=== PATIENT | male | born 1970 | race Native Hawaiian/Other Pacific Islander ===

== ENCOUNTER → 2016-05-26 | Outpatient (CLI) | payer OTHER ==
--- NOTE | 2016-05-26 12:00 | REP ---
LUMBAR SPINE, SEVEN VIEWS: HISTORY: Spondylolisthesis. There is no acute fracture. The L4-5 and L5-S1 intervertebral discs are decreased in height consistent with disc degeneration. There are 9 mm of grade 1 spondylolisthesis of L4 on L5. This is associated with L4 pars defects. The spondylolisthesis increases to 12 mm with flexion and returns to 9 mm with extension. IMPRESSION: Degenerative change as described above. Signed by Vini Bowser MD 05/26/2016 12:04 P
== END ==
LOC: M RAD 09:33
PROVIDERS: ATTEND Physician Assistant
DX: M43.17 Spondylolisthesis, lumbosacral region (principal)

== ENCOUNTER → 2016-06-29 | Outpatient (CLI) | payer OTHER ==
--- NOTE | 2016-07-11 00:36 | ECWPNPC ---
PATIENT NAME: YANDY SALDIVAR : 1970 GENDER: MALE VISIT DATE: 06/29/2016 DISCHARGE DATE: 06/29/16 1106 VISIT LOCKED DATE TIME: PHYSICIAN: KENDAL LARIOS RESOURCE: KENDAL LARIOS REASON FOR APPOINTMENT 1. LOW BACK PAIN HISTORY OF PRESENT ILLNESS NEW PATIENT CONSULT: WHEN DID YOUR PAIN FIRST START? . BRIEFLY DESCRIBE HOW YOUR PAIN STARTED? . HOW DOES YOUR PAIN CHANGE WITH TIME? . DOES YOUR PAIN AWAKEN YOU FROM SLEEP? . HOW MANY HOURS OF SLEEP DO YOU NORMALLY GET? . ANY DIAGNOSTIC TESTING? . FACILITY WHERE TESTS WERE DONE? ____. PAIN TREATMENT TREATMENT YES CANCER HAVE YOU EVER HAD ANY TYPE OF CANCER?NO NO. 46 YEAR OLD MALE PATIENT WITH HISTORY OF CHRONIC LOW BACK PAIN. PATIENT DESCRIBES THE PAIN ACHING, SHARP, THROBBING, SORE, SHOOTING, AND HAVING IT ALL THE TIME WITH A PAIN SCORE OF 8/10. 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 MR. SALDIVAR HAD A SURGICAL CONSULT WITH DR. OSMAN CASTILLO AND WAS TOLD THAT HE IS NOT A CANDIDATE FOR SURGERY AT THIS TIME. PATIENT REPORTS HAVING AN INJECTION BEFORE THAT AIDED IN PAIN RELIEF GREATLY. MR. SALDIVAR IS CURRENTLY NOT USING ANY MEDICATION FOR PAIN RELIEF. REPORTS NOT SLEEPING WELL AT NIGHT DUE TO THE PAIN. PATIENT REPORTS THAT ANY TYPE OF ACTIVITY INCREASES THE PAIN IN HIS LOWER BACK AND AT THIS TIME THE ONLY THING THAT HAS AIDED IN PAIN RELIEF IS THE INJECTION AND RESTING. PATIENT DENIES UNEXPLAINABLE WEIGHT LOSS, FEVER, CHILLS, NEW CHANGES ON HER URINARY OR BOWEL CONTROL. PAIN SCREENING: PATIENT HAS A COMPLAINT OF ACUTE OR CHRONIC PAIN :YES FALL RISK SCREENING: SCREENING :NO FALLS IN THE PAST YEAR DEXTER INVENTORY: QUESTIONNAIRE ASSESSEDTBD SCORE VALUE CALCULATED TBD CURRENT MEDICATIONS NONE PAST MEDICAL HISTORY LOW BACK PAIN RIGHT TENNIS ELBOW LEFT THUMB DISLOCATION DEPRESSION CATARACTS ALLERGIES N.K.D.A. SURGICAL HISTORY LEFT FIBULA ORIF FAMILY HISTORY FATHER: MOTHER: 2 SON(S) , 2 DAUGHTER(S) - HEALTHY. SOCIAL HISTORY GENERAL: TOBACCO USE ARE YOU A:NONSMOKER ALCOHOL SCREENING POINTS0 INTERPRETATIONNEGATIVE RECREATIONAL DRUG USE DRUG USE?NO CAFFEINE CAFFEINE USE?YES HOW OFTEN AND HOW MUCH? 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 MARITAL STATUS: . OTHERS AT HOME: SPOUSE. LEARNING BARRIERS / SPECIAL NEEDS LEARNING PREFERENCES?YES :HANDOUTS, DEMONSTRATION/VERBAL INSTRUCTION MEDICATION ABUSE NO PSYCHOLOGICAL HX TREATMENTYES HOW OFTEN AND HOW MUCH? BEHAVIORAL HEALTH EVERY 3 MOS PAIN CLINIC PFS, CLERGY, PUBLIC HEALTH REFERRALS CLERGY REFERRAL NEEDED?NO WAS THE PROVIDER NOTIFIED OF ANY PERTINENT INFO?NO PFS REFERRAL NEEDED?NO PUBLIC HEALTH REFERRAL NEEDED?NO PATIENT: ____. ADVANCED DIRECTIVES HEALTH CARE PROXY?NO WOULD YOU LIKE MORE INFORMATION?YES HCP FORM GIVEN TO PT DO YOU HAVE A DNR?NO POWER OF EXAMINATION SCORER?YES NAME OF POA? DIANE SALDIVAR PHONE # OF POA? [phone] DO YOU HAVE A COPY WITH YOU?NO HOSPITALIZATION/MAJOR DIAGNOSTIC PROCEDURE SEE ABOVE SURGERY REVIEW OF SYSTEMS CONSTITUTIONAL: ANY CHANGE IN YOUR MEDICAL CONDITION? NO . CHILLS NO . FEVER NO . INFECTION: DO YOU HAVE NEW INFECTIONS? NO . DO YOU HAVE HISTORY OF MRSA? NO . MUSCULOSKELETAL: ANY NEW PATTERNS OF PAIN OR NUMBNESS? YES PT STATES HX OF LOW BACK PAIN X 18 YRS-WORSENED RECENTLY. PT STATES IN 1998 BACK NOTED BACK PAIN AFTER LIFTING. PHYSICAL ACTIVITY LIMITED DUE TO BACK PAIN. PT STATES NOTES INTERMITTENT DISCOMFORT DOWN LEFT BUTTOCK/THIGH. . SYTEMIC LUPUS NO . GASTROENTEROLOGY: ANY NEW CHANGE IN BOWEL CONTROL? NOTES BOWEL URGENCY WITH SOME INCONTINENCE. . BARRETTS ESOPHAGUS NO . CIRRHOSIS NO . HEPATITIS NO . LIVER FAILURE NO . ACID REFLUX YES &QUOT;MINIMAL&QUOT; . UNEXPLAINED WEIGHT LOSS NO . GENITOURINARY: ANY NEW CHANGE IN BLADDER CONTROL? NO . IS THERE A CHANCE YOU COULD BE ? NO . HEMATOLOGY/LYMPH: DO YOU TAKE ANY BLOOD THINNERS? (FOR EXAMPLE- COUMADIN, PLAVIX, AGGRENOX, PLATEL, PRADAXA, OR XARELTO) NO . WHEN WAS YOUR LAST DOSE? DATE: TIME: . LOW PLATELET COUNT NO . SICKLE CELL DISEASE NO . VON WILLIEBRANDS NO . FACTOR V LEIDEN NO . THALLASEMIA NO . ANEMIA NO . EASY BRUISING NO . NEUROLOGY: HAVE YOU FALLEN IN THE PAST 6 MONTHS? NO . ANY NEW EXTREMITY NUMBNESS OR WEAKNESS? YES PT NOTES WEAKNESS LEFT THIGH INTERMITTENTLY. . HEAD INJURY YES &QUOT; FROM PARACHUTING/ TRAINING-EXPLOSIONS&QUOT; . DEMENTIA NO . CEREBRAL PALSY NO . MULTIPLE SCLEROSIS NO . DIZZINESS YES, INTERMITTENT, LASTING FOR MINUTES, SENSATION OF IMBALANCE, WITH MOVEMENT OF HEAD, SENSATION OF ROOM SPINNING . HEADACHE NO . STROKES NO . VERTIGO NO . CARDIOLOGY: DO YOU HAVE A PACEMAKER OR DEFIBRILLATOR? NO . ANGINA NO . HEART ATTACK NO . HEART SURGERY NO . CONGESTIVE HEART FAILURE/FLUID OVERLOAD NO . CHEST PAIN NO, PATIENT ADMITS, AGGRAVATED WITH EXERCISE, INCREASED WITH MOVEMENT OF TRUNK, RELIEVED WITH REST . HIGH BLOOD PRESSURE NO . IRREGULAR HEART BEAT NO . RESPIRATORY: HAVE YOU BEEN SICK IN THE PAST WEEK? NO . FEVER NO . FLU LIKE SYMPTOMS? NO . CPAP NO . BYPAP NO . ASTHMA NO . EMPHYSEMA NO . CHRONIC LUNG DISEASES NO . SHORTNESS OF BREATH ON EXERTION NO . DO YOU USE ANY TYPE OF TOBACCO (SMOKE, SMOKELESS, CHEW)? YES CHEWING TOBACCO DAILY . COUGH NO . SNORING NO . INTEGUMENTARY: DO YOU HAVE ANY RASHES OR OPEN SORES? NO . ALLERGIC/IMMUNO: ARE YOU ALLERGIC TO SHELLFISH OR IV DYE? NO . ANY NEW ALLERGIES? NO . PSYCHIATRIC: DO YOU HAVE THOUGHTS OF HURTING YOURSELF OR SOMEONE ELSE? NO . ARE YOU ABUSED, NEGLECTED, OR IN AN UNSAFE ENVIRONMENT? NO . ENDOCRINOLOGY: ARE YOU DIABETIC? NO . THYROID DISORDER NO . OTHER: DO YOU NEED ANY PRESCRIPTIONS? NO . IF YES, PLEASE LIST: ____ . ANY NEW PROBLEMS WITH YOUR MEDICATIONS? NO . WHEN DID YOU LAST EAT? ____ . WHEN DID YOU LAST DRINK? ____ . WHAT DID YOU LAST DRINK? ____ . NAME OF PERSON DRIVING YOU HOME? ____ . DO YOU HAVE ANY OTHER QUESTIONS OR CONCERNS NO . REVIEWED BY: PROVIDER: KENDAL LARIOS MD . VITAL SIGNS WT 185.4 LBS, HT 65 IN, BMI 30.85 INDEX, BP 122/72 MM HG, HR 76 /MIN, RR 18 /MIN, TEMP 98.4 F, OXYGEN SAT % 95, NA INITIALS HS, REVIEWED BY: MLF. EXAMINATION : PATIENT IS ALERT O X 3 AND COOPERATIVE. ANTALGIC GAIT. PATIENT HAS DIFFICULTIES STANDING. TENDERNESS IN THE LOWER BACK AND PARASPINAL MUSCLE GROUP. PATIENT UNABLE TO FLEX OR EXTEND BACK DUE TO STIFFNESS. MRI DONE ON 05/25/16 SHOWS A PARS DEFECT AT L4 L5 ALONG WITH DISC BULGES AND HYPERTROPHY. 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 CLINICAL NOTES: WE DISCUSSED SEVERAL ISSUES WITH MR. SALDIVAR'S PAIN MANAGEMENT CASE. AT THIS TIME THE PATIENT WILL CONTINUE WITH THE SAME MEDICATION REGIME BEFORE. AFTER VIEWING THE PATIENT'S MRI AND WHERE THE PATIENT STATES MOST OF HIS PAIN IS I WOULD LIKE TO MOVE FORWARD WITH A LUMBAR FACET BLOCK. WE DISCUSSED THE RISKS, BENENFITS, AND ALTNERATIVES OF THE INJECTION AND THE PATIENT WOULD LIKE TO PROCEED AT THIS TIME. INSTRUCTIONS WERE GIVEN, QUESTIONS WERE ANSWERED, PATIENT REPORTS UNDERSTANDING AND AGREES WITH THE PLAN. I, YENI SANTACRUZ, DOCUMENTED THE ABOVE INFORMATION ACTING A SCRIBE FOR DR. LARIOS. I HAVE REVIEWED THE ABOVE DOCUMENT, WRITTEN BY YENI MARTINEZ AND I VERIFY THAT IT IS ACCURATE. DEAR DR. CASTILLO:THANK YOU FOR YOUR KIND REFERRAL OF MR. SALDIVAR. YOU WANT TO DISCUSS HER CASE WITH ME PLEASE CALL ME AT THE PAIN CENTER AT [phone]. SINCERELY,KENDAL LARIOS, [facility]. PROCEDURE CODES FA211 ESTABILISHED PATIENT [facility] FACILITY CHARGE G8427 DOC MEDS VERIFIED W/PT OR RE G8730 PAIN ASSESS POS TOOL F/U PLAN DOC DISPOSITION & COMMUNICATION FOLLOW UP LFBT AFTER APPROVAL ELECTRONICALLY SIGNED BY KENDAL LARIOS MD ON 07/10/2016 AT 01:51 PM EDT DISCLAIMER : THIS IS A VISIT SUMMARY EXTRACTED FROM THE [employer] CHART. IT IS NOT A COPY OF THE [employer] PROGRESS NOTE. MTDD
== END ==
LOC: M PAIN 08:40
PROVIDERS: ATTEND Anesthesiology
DX: M47.816 Spondylosis without myelopathy or radiculopathy, lumbar region (principal); M47.817 Spondylosis without myelopathy or radiculopathy, lumbosacral region; M51.16 Intervertebral disc disorders with radiculopathy, lumbar region; M51.17 Intervertebral disc disorders with radiculopathy, lumbosacral region; M54.5 Low back pain; G89.29 Other chronic pain; F32.9 Major depressive disorder, single episode, unspecified

== ENCOUNTER → 2016-08-17 | Outpatient (CLI) | payer OTHER ==
[~2016-08-17] MED LIST: BUPIVACAINE HCL 0.25% 30 ML VIAL As Ordered ONE; ISOVUE-M 300 61% 15ML VIAL (Q9967) As Ordered ONE; LIDOCAINE 1% SDV INJ 30 ML VIAL As Ordered ONE; TRIAMCINOLONE ACETONIDE SUSP 40 MG/ML VIAL (J3301) As Ordered ONE; diazePAM 5 MG TAB As Ordered ONE; oxyCODONE 5MG TAB As Ordered ONE
--- NOTE | 2016-08-17 11:42 | REP ---
PARTIAL LUMBAR SPINE SERIES: Four views. HISTORY: Bilateral lumbar spine facet block for pain. Fluoroscopy time is 17 seconds. FINDINGS: A sequence of four fluoroscopically obtained last image hold spot radiographs of the lumbar spine document various needle positions and contrast injections associated with lumbar spine facet injection procedure. Signed by Sachin Pastrana MD 08/17/2016 12:41 P
--- NOTE | 2016-08-29 01:27 | ECWPNPC ---
PATIENT NAME: YANDY SALDIVAR : 1970 GENDER: MALE VISIT DATE: 08/17/2016 DISCHARGE DATE: 08/17/16 1127 VISIT LOCKED DATE TIME: PHYSICIAN: KENDAL LARIOS RESOURCE: KENDAL LARIOS REASON FOR APPOINTMENT 1. LFBT HISTORY OF PRESENT ILLNESS HISTORY OF PRESENT ILLNESS: PAIN THE PATIENT DESCRIBES THE PAIN... FALL RISK SCREENING: SCREENING :NO FALLS IN THE PAST YEAR CURRENT MEDICATIONS NONE PAST MEDICAL HISTORY LOW BACK PAIN RIGHT TENNIS ELBOW LEFT THUMB DISLOCATION DEPRESSION CATARACTS ALLERGIES N.K.D.A. REVIEW OF SYSTEMS CONSTITUTIONAL: ANY CHANGE IN YOUR MEDICAL CONDITION? NO . CHILLS NO . FEVER NO . INFECTION: DO YOU HAVE NEW INFECTIONS? NO . DO YOU HAVE HISTORY OF MRSA? NO . MUSCULOSKELETAL: ANY NEW PATTERNS OF PAIN OR NUMBNESS? NO . GASTROENTEROLOGY: ANY NEW CHANGE IN BOWEL CONTROL? NO . GENITOURINARY: ANY NEW CHANGE IN BLADDER CONTROL? NO . IS THERE A CHANCE YOU COULD BE ? NO . HEMATOLOGY/LYMPH: DO YOU TAKE ANY BLOOD THINNERS? (FOR EXAMPLE- COUMADIN, PLAVIX, AGGRENOX, PLATEL, PRADAXA, OR XARELTO) NO . WHEN WAS YOUR LAST DOSE? DATE: TIME: . NEUROLOGY: HAVE YOU FALLEN IN THE PAST 6 MONTHS? NO . ANY NEW EXTREMITY NUMBNESS OR WEAKNESS? NO . CARDIOLOGY: DO YOU HAVE A PACEMAKER OR DEFIBRILLATOR? NO . RESPIRATORY: HAVE YOU BEEN SICK IN THE PAST WEEK? NO . FEVER NO . FLU LIKE SYMPTOMS? NO . COUGH NO . INTEGUMENTARY: DO YOU HAVE ANY RASHES OR OPEN SORES? NO . ALLERGIC/IMMUNO: ARE YOU ALLERGIC TO SHELLFISH OR IV DYE? NO . ANY NEW ALLERGIES? NO . PSYCHIATRIC: DO YOU HAVE THOUGHTS OF HURTING YOURSELF OR SOMEONE ELSE? NO . ARE YOU ABUSED, NEGLECTED, OR IN AN UNSAFE ENVIRONMENT? NO . ENDOCRINOLOGY: ARE YOU DIABETIC? NO . OTHER: DO YOU NEED ANY PRESCRIPTIONS? NO . IF YES, PLEASE LIST: ____ . ANY NEW PROBLEMS WITH YOUR MEDICATIONS? NO . WHEN DID YOU LAST EAT? 08-16- PM . WHEN DID YOU LAST DRINK? 08-16- PM . WHAT DID YOU LAST DRINK? WATER . NAME OF PERSON DRIVING YOU HOME? DIANE OTT . DO YOU HAVE ANY OTHER QUESTIONS OR CONCERNS NO . REVIEWED BY: PROVIDER: . VITAL SIGNS WT 180.2 LBS, HT 65 IN, BMI 29.98 INDEX, BP 132/81 MM HG, HR 63 /MIN, RR 16 /MIN, TEMP 97.9 F, OXYGEN SAT % 99%, NA INITIALS SC 09:33, REVIEWED BY: CM. ASSESSMENTS SPONDYLOSIS WITHOUT MYELOPATHY OR RADICULOPATHY, LUMBAR REGION - M47.816 (PRIMARY) SPONDYLOSIS WITHOUT MYELOPATHY OR RADICULOPATHY, LUMBOSACRAL REGION - M47.817 PROCEDURES PN LUMBAR FACET BLOCK THERAPEUTIC PRE PROCEDURE DIAGNOSIS LUMBAR SPONDYLOSIS, LUMBOSACRAL SPONDYLOSIS POST PROCEDURE DIAGNOSIS LUMBAR SPONDYLOSIS, LUMBOSACRAL SPONDYLOSIS PROCEDURE BILATERAL L4-L5 AND BILATERAL L5-S1 LUMBAR FACET THERAPEUTIC BLOCK SURGEON DR. KENDAL LARIOS CLERICAL STOCK INSPECTOR NONE ANESTHESIA LOCAL PRE PROCEDURE NOTE THE PATIENT HAS A HISTORY OF CHRONIC LOW BACK PAIN. I EVALUATE THE PATIENT AND REVIEWED THE CHART. I WENT OVER THE RISKS, ALTERNATIVES, AND BENEFITS ASSOCIATED WITH THIS PROCEDURE. THE PATIENT WOULD LIKE TO PROCEED AND GIVE CONSENT TO PERFORMED THE PROCEDURE. THE PATIENT DENIES UNEXPLAINABLE WEIGHT LOSS, FEVER, CHILLS, OR NEW CHANGES IN URINARY OR BOWEL CONTROL DESCRIPTION OF PROCEDURE THE PATIENT WAS BROUGHT TO THE PROCEDURE ROOM AND PLACED IN THE PRONE POSITION. THE LUMBOSACRAL AREA WAS CLEANED WITH CHLORAPREP SOLUTION AND DRAPED ASEPTICALLY. THE PROCEDURE WAS DONE UNDER STERILE CONDITIONS. I CHECKED LATERALITY AND THE LEVEL WHERE THE PROCEDURE WAS GOING TO BE PERFORMED WITH THE PATIENT AND THE SUPPORTING STAFF AT THE MOMENT OF THE TIME OUT IN THE PROCEDURE ROOM. UNDER FLUOROSCOPIC GUIDANCE, THE TARGET POINT WAS SELECTED AT THE RIGHT AND LEFT L4-L5 AND RIGHT AND LEFT L5-S1 FACET JOINT. TARGET POINT WAS SELECTED AFTER LATERAL ROTATION AND TILT OF THE MAGNIFIER OF THE C-ARM. LIDOCAINE 0.5% WAS USED TO NUMB THE SKIN AND THE SUBCUTANEOUS TISSUE BELOW IT. SPINAL NEEDLES, 22-GAUGE, WERE ADVANCED UNDER FLUOROSCOPIC GUIDANCE AND FOLLOWING PATIENT FEEDBACK UNTIL THE TARGETS WERE TOUCHED. THE POSITION OF THE NEEDLES WAS VERIFIED WITH AP AND LATERAL VIEWS. AFTER PROPER POSITION OF THE NEEDLES WAS ACHIEVED, ISOVUE-M DYE 30% 0.1 ML WAS INJECTED SHOWING ADEQUATE SPREAD OF THE DYE. THEN A SOLUTION OF 1.9 ML OF BUPIVACAINE 0.125% OF KENALOG 10 MG WAS INJECTED AT EACH SITE. THERE WAS NO EVIDENCE OF BLOOD, PARESTHESIA OR CEREBROSPINAL FLUID DURING THE PROCEDURE. THE PATIENT WAS SENT TO THE RECOVERY ROOM. THE PATIENT WAS MOVING THE EXTREMITIES AND DOING WELL. THERE WAS NO COMPLICATION DURING THE PROCEDURE. FLUOROSCOPY TIME WAS 17 SECONDS POST PROCEDURE NOTE THE PATIENT WILL BE SEEN IN A FOLLOW UP IN THE NEXT FEW WEEKS. INSTRUCTIONS WERE GIVEN, QUESTIONS WERE ANSWERED, AND THE PATIENT EXPRESSED UNDERSTANDING AND AGREES WITH THE PLAN. I, YENI SANTACRUZ, DOCUMENTED THE ABOVE INFORMATION ACTING A SCRIBE FOR DR. LARIOS. I HAVE REVIEWED THE ABOVE DOCUMENT, WRITTEN BY YENI MARTINEZ AND I VERIFY THAT IT IS ACCURATE DIAGNOSTIC IMAGING [facility] FACET BLOCK (PAIN)[id number] PROCEDURE CODES 15056 INJ PARAVERT F JNT L/S 1 LEV 52656 INJ PARAVERT F JNT L/S 2 LEV 6045F RADXPS IN END [id number] PXD DISPOSITION & COMMUNICATION FOLLOW UP 3 WEEKS ELECTRONICALLY SIGNED BY KENDAL LARIOS MD ON 08/28/2016 AT 09:37 PM EDT DISCLAIMER : THIS IS A VISIT SUMMARY EXTRACTED FROM THE [employer] CHART. IT IS NOT A COPY OF THE [employer] PROGRESS NOTE. MTDD
== END ==
LOC: M PAIN 09:00
PROVIDERS: ATTEND Anesthesiology
DX: G89.29 Other chronic pain (principal); M47.816 Spondylosis without myelopathy or radiculopathy, lumbar region; M47.817 Spondylosis without myelopathy or radiculopathy, lumbosacral region; M54.5 Low back pain
CPT/HCPCS: 64493; 64494; J3301; Q9967

== ENCOUNTER → 2016-08-31 | Outpatient (CLI) | payer OTHER ==
--- NOTE | 2016-08-31 23:49 | ECWPNPC ---
PATIENT NAME: YANDY SALDIVAR : 1970 GENDER: MALE VISIT DATE: 08/31/2016 DISCHARGE DATE: 08/31/16 1609 VISIT LOCKED DATE TIME: PHYSICIAN: JAGDISH DOYLE RESOURCE: JAGDISH DOYLE REASON FOR APPOINTMENT 1. POST FACET HISTORY OF PRESENT ILLNESS HISTORY OF PRESENT ILLNESS: HERE FOR POST PROCEDURE F/U.HAD BILATERALL4/5-L5/S1 THERAPEUTIC FACET BLOCK.REPORTING >50% IMPROVEMENT IN LOW BACK PAIN POST PROCEDURE THAT CONTINUES TODAY.RATING PAIN VAS 4/10.CHIEF AREA OF PAIN IS LEFT LOW BACK.DESCRIBES THIS AREA OF PAIN SHARP AND GRABBING.PAIN IN THIS AREA IS SO SEVERE THAT IT DROPS HIM TO HIS KNEES.REVIEWED MRI AND TREATMENT OPTIONS WITH PATIENT AND . PAIN THE PATIENT DESCRIBES THE PAIN... FALL RISK SCREENING: SCREENING :NO FALLS IN THE PAST YEAR CURRENT MEDICATIONS TAKING IBUPROFEN 200 MG TABLET 1 TABLET WITH FOOD OR MILK NEEDED ORALLY EVERY 6 HRS MEDICATION LIST REVIEWED AND RECONCILED WITH THE PATIENT PAST MEDICAL HISTORY LOW BACK PAIN RIGHT TENNIS ELBOW LEFT THUMB DISLOCATION DEPRESSION CATARACTS ALLERGIES APPLES: ITCHING IN THROAT AND IRRITATION: ALLERGY ALMONDS: THROAT AND LIPS ITCHING AND IRRITATION: ALLERGY SOCIAL HISTORY GENERAL: TOBACCO USE ARE YOU A:NONSMOKER ALCOHOL SCREENING DID YOU HAVE A DRINK CONTAINING ALCOHOL IN THE PAST YEAR?NO POINTS0 INTERPRETATIONNEGATIVE RECREATIONAL DRUG USE DRUG USE?NO CAFFEINE CAFFEINE USE?YES HOW OFTEN AND HOW MUCH? 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 MARITAL STATUS: . OTHERS AT HOME: SPOUSE. LEARNING BARRIERS / SPECIAL NEEDS LEARNING PREFERENCES?YES :HANDOUTS, DEMONSTRATION/VERBAL INSTRUCTION MISCELLANEOUS: CHEWS TOBACCO. MEDICATION ABUSE NO PSYCHOLOGICAL HX TREATMENTYES HOW OFTEN AND HOW MUCH? BEHAVIORAL HEALTH EVERY 3 MOS PAIN CLINIC PFS, CLERGY, PUBLIC HEALTH REFERRALS PFS REFERRAL NEEDED? NO , CLERGY REFERRAL NEEDED? NO , PUBLIC HEALTH REFERRAL NEEDED? NO , WAS THE PROVIDER NOTIFIED OF ANY PERTINENT INFO? NO . PATIENT: ____. ADVANCE DIRECTIVES HEALTH CARE PROXY?NO WOULD YOU LIKE MORE INFORMATION?YES HCP FORM GIVEN TO PT DO YOU HAVE A DNR?NO POWER OF BOX FOLDING MACHINE OPERATOR?YES NAME OF POA? MANNYCLEO MARQUEZDANAY PHONE # OF POA? [phone] DO YOU HAVE A COPY WITH YOU?NO REVIEW OF SYSTEMS CONSTITUTIONAL: ANY CHANGE IN YOUR MEDICAL CONDITION? NO . CHILLS NO . FEVER NO . INFECTION: DO YOU HAVE NEW INFECTIONS? NO . DO YOU HAVE HISTORY OF MRSA? NO . MUSCULOSKELETAL: ANY NEW PATTERNS OF PAIN OR NUMBNESS? NO . GASTROENTEROLOGY: ANY NEW CHANGE IN BOWEL CONTROL? NO . GENITOURINARY: ANY NEW CHANGE IN BLADDER CONTROL? NO . IS THERE A CHANCE YOU COULD BE ? NO . HEMATOLOGY/LYMPH: DO YOU TAKE ANY BLOOD THINNERS? (FOR EXAMPLE- COUMADIN, PLAVIX, AGGRENOX, PLATEL, PRADAXA, OR XARELTO) NO . WHEN WAS YOUR LAST DOSE? DATE: TIME: . NEUROLOGY: HAVE YOU FALLEN IN THE PAST 6 MONTHS? NO . ANY NEW EXTREMITY NUMBNESS OR WEAKNESS? NO . CARDIOLOGY: DO YOU HAVE A PACEMAKER OR DEFIBRILLATOR? NO . RESPIRATORY: HAVE YOU BEEN SICK IN THE PAST WEEK? NO . FEVER NO . FLU LIKE SYMPTOMS? NO . COUGH NO . INTEGUMENTARY: DO YOU HAVE ANY RASHES OR OPEN SORES? NO . ALLERGIC/IMMUNO: ARE YOU ALLERGIC TO SHELLFISH OR IV DYE? NO . ANY NEW ALLERGIES? NO . PSYCHIATRIC: DO YOU HAVE THOUGHTS OF HURTING YOURSELF OR SOMEONE ELSE? NO . ARE YOU ABUSED, NEGLECTED, OR IN AN UNSAFE ENVIRONMENT? NO . ENDOCRINOLOGY: ARE YOU DIABETIC? NO . OTHER: DO YOU NEED ANY PRESCRIPTIONS? NO . IF YES, PLEASE LIST: ____ . ANY NEW PROBLEMS WITH YOUR MEDICATIONS? NO . WHEN DID YOU LAST EAT? ____ . WHEN DID YOU LAST DRINK? ____ . WHAT DID YOU LAST DRINK? ____ . NAME OF PERSON DRIVING YOU HOME? ____ . DO YOU HAVE ANY OTHER QUESTIONS OR CONCERNS NO . REVIEWED BY: PROVIDER: JAGDISH ZAVALA . VITAL SIGNS WT 177/6 LBS, HT 65 IN, BMI 26.70 INDEX, BP 134/81 MM HG, HR 75 /MIN, RR 18 /MIN, TEMP 97.7 F, OXYGEN SAT % 97%, NA INITIALS SC 15:31, REVIEWED BY: VD. EXAMINATION GENERAL EXAMINATION: GENERAL APPEARANCE:COMFORTABLE. PSYCHAFFECT FLAT. LUNGS:LUNG JORDAN ARE CLEAR TO AUSCULTATION BILATERALLY. GOOD MOVEMENT OF AIR. HEART:S1, S2 IN A REGULAR RATE AND RHYTHM. NO SIGNIFICANT MURMURS, RUBS OR GALLOPS NOTED. BACK:SPECIFIC LEFT SIJ DISCOMFORT WITH PALPATION.SPECIFIC TRIGGER POINTS ELICITED LEFT LUMBAR PARASPINAL. 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 PREVENTIVE MEDICINE PT. GIVEN AND REVIEWED INFORMATION ABOUT SIJS. PROCEDURE CODES FA211 ESTABILISHED PATIENT [facility] CHARGE DISPOSITION & COMMUNICATION FOLLOW UP 2WK POST (REASON: LEFT SIJ) ELECTRONICALLY SIGNED BY SALLY LUNA ON 08/31/2016 AT 04:47 PM EDT DISCLAIMER : THIS IS A VISIT SUMMARY EXTRACTED FROM THE [employer] CHART. IT IS NOT A COPY OF THE [employer] PROGRESS NOTE. ANUJA
== END ==
LOC: M PAIN 15:20
PROVIDERS: ATTEND Nurse Practitioner Family
DX: M53.3 Sacrococcygeal disorders, not elsewhere classified (principal); M43.06 Spondylolysis, lumbar region; Z91.018 Allergy to other foods

== ENCOUNTER → 2016-09-04 | Outpatient (CLI) | payer OTHER | LOC: M PAIN 09:20 | PROVIDERS: ATTEND Anesthesiology | DX: M53.3 Sacrococcygeal disorders, not elsewhere classified (principal); Z53.21 Procedure and treatment not carried out due to patient leaving prior to being seen by health care provider ==

== ENCOUNTER → 2016-09-28 | Outpatient (CLI) | payer OTHER ==
[~2016-09-28] MED LIST changes: -diazePAM 5 MG TAB As Ordered ONE; -oxyCODONE 5MG TAB As Ordered ONE
--- NOTE | 2016-09-28 14:15 | REP ---
PARTIAL SI JOINT SERIES: Single view. HISTORY: Left SI joint injection for pain. 9 seconds of fluoroscopy time is reported. FINDINGS: A single fluoroscopically obtained last image hold spot radiograph documents needle position and contrast injection associated with SI joint injection procedure. No laterality markers are visible. Signed by Sachin Pastrana MD 09/28/2016 05:15 P
--- NOTE | 2016-10-09 00:03 | ECWPNPC ---
PATIENT NAME: YANDY SALDIVAR : 1970 GENDER: MALE VISIT DATE: 09/28/2016 DISCHARGE DATE: 09/28/16 1149 VISIT LOCKED DATE TIME: PHYSICIAN: KENDAL LARIOS RESOURCE: KENDAL LARIOS REASON FOR APPOINTMENT 1. L SIJ HISTORY OF PRESENT ILLNESS HISTORY OF PRESENT ILLNESS: PAIN THE PATIENT DESCRIBES THE PAIN... FALL RISK SCREENING: SCREENING :NO FALLS IN THE PAST YEAR CURRENT MEDICATIONS TAKING IBUPROFEN 200 MG TABLET 1 TABLET WITH FOOD OR MILK NEEDED ORALLY EVERY 6 HRS, NOTES: NONE RECENT MEDICATION LIST REVIEWED AND RECONCILED WITH THE PATIENT PAST MEDICAL HISTORY LOW BACK PAIN RIGHT TENNIS ELBOW LEFT THUMB DISLOCATION DEPRESSION CATARACTS ALLERGIES APPLES: ITCHING IN THROAT AND IRRITATION: ALLERGY ALMONDS: THROAT AND LIPS ITCHING AND IRRITATION: ALLERGY REVIEW OF SYSTEMS REVIEWED BY: PROVIDER: . CONSTITUTIONAL: ANY CHANGE IN YOUR MEDICAL CONDITION? NO . CHILLS NO . FEVER NO . INFECTION: DO YOU HAVE NEW INFECTIONS? NO . DO YOU HAVE HISTORY OF MRSA? NO . MUSCULOSKELETAL: ANY NEW PATTERNS OF PAIN OR NUMBNESS? YES, PAIN IS GOING DOWN LEFT LEG MORE AND HAS SOME NUMBNESS IN THE LEG. . GASTROENTEROLOGY: ANY NEW CHANGE IN BOWEL CONTROL? NO . GENITOURINARY: ANY NEW CHANGE IN BLADDER CONTROL? NO . IS THERE A CHANCE YOU COULD BE ? NO . HEMATOLOGY/LYMPH: DO YOU TAKE ANY BLOOD THINNERS? (FOR EXAMPLE- COUMADIN, PLAVIX, AGGRENOX, PLATEL, PRADAXA, OR XARELTO) NO . WHEN WAS YOUR LAST DOSE? DATE: TIME: . NEUROLOGY: HAVE YOU FALLEN IN THE PAST 6 MONTHS? YES . ANY NEW EXTREMITY NUMBNESS OR WEAKNESS? NO . CARDIOLOGY: DO YOU HAVE A PACEMAKER OR DEFIBRILLATOR? NO . RESPIRATORY: HAVE YOU BEEN SICK IN THE PAST WEEK? NO . FEVER NO . FLU LIKE SYMPTOMS? NO . COUGH NO . INTEGUMENTARY: DO YOU HAVE ANY RASHES OR OPEN SORES? NO . ALLERGIC/IMMUNO: ARE YOU ALLERGIC TO SHELLFISH OR IV DYE? NO . ANY NEW ALLERGIES? NO . PSYCHIATRIC: DO YOU HAVE THOUGHTS OF HURTING YOURSELF OR SOMEONE ELSE? NO . ARE YOU ABUSED, NEGLECTED, OR IN AN UNSAFE ENVIRONMENT? NO . ENDOCRINOLOGY: ARE YOU DIABETIC? NO . OTHER: DO YOU NEED ANY PRESCRIPTIONS? NO . IF YES, PLEASE LIST: ____ . ANY NEW PROBLEMS WITH YOUR MEDICATIONS? NO . WHEN DID YOU LAST EAT? 09-27- PM . WHEN DID YOU LAST DRINK? -- PM . WHAT DID YOU LAST DRINK? WATER . NAME OF PERSON DRIVING YOU HOME? OTILIO . DO YOU HAVE ANY OTHER QUESTIONS OR CONCERNS NO . VITAL SIGNS WT 173 LBS, HT 65 IN, BMI 28.79 INDEX, BP 105/52 MM HG, HR 63 /MIN, RR 16 /MIN, TEMP 98.1 F, OXYGEN SAT % 97%, NA INITIALS TL 0916, REVIEWED BY: CM. ASSESSMENTS SACROILIITIS - M46.1 (PRIMARY) PROCEDURES PN SI PRE PROCEDURE DIAGNOSIS SACROILIITIS, SACROILIAC JOINT DYSFUNCTION POST PROCEDURE DIAGNOSIS SACROILIITIS, SACROILIAC JOINT DYSFUNCTION PROCEDURE LEFT SACROILIAC JOINT BLOCK SURGEON DR. KENDAL LARIOS CORE FEEDER NONE ANESTHESIA LOCAL PRE PROCEDURE NOTE PATIENT WITH HISTORY OF CHRONIC LOW BACK PAIN. I EVALUATED THE PATIENT AND REVIEWED THE CHART. I WENT OVER THE RISKS, ALTERNATIVES, AND BENEFITS ASSOCIATED WITH THIS PROCEDURE. THE PATIENT WOULD LIKE TO PROCEED AND GAVE CONSENT TO PERFORM THE PROCEDURE. THE PATIENT DENIES UNEXPLAINABLE WEIGHT LOSS, FEVER, CHILLS, OR NEW CHANGES IN URINARY OR BOWEL CONTROL DESCRIPTION OF PROCEDURE THE PATIENT WAS BROUGHT TO THE PROCEDURE ROOM AND PLACED IN THE PRONE POSITION. THE LUMBOSACRAL AREA WAS CLEANED WITH CHLORAPREP SOLUTION AND DRAPED ASEPTICALLY. THE PROCEDURE WAS DONE UNDER STERILE CONDITIONS. I CHECKED LATERALITY AND THE LEVEL WHERE THE PROCEDURE WAS GOING TO BE PERFORMED WITH THE PATIENT AND THE SUPPORTING STAFF AT THE MOMENT OF THE TIME OUT IN THE PROCEDURE ROOM. UNDER FLUOROSCOPIC GUIDANCE, TARGET POINT WAS SELECTED AT THE LOWER BORDER OF THE LEFT SACROILIAC JOINT. TARGET POINT WAS SELECTED AFTER MEDIAL ROTATION AND TILT OF THE MAGNIFIER OF THE C-ARM. LIDOCAINE WAS USED TO NUMB THE SKIN AND SUBCUTANEOUS TISSUE BELOW IT. A SPINAL NEEDLE, 22-GAUGE, WAS ADVANCED UNDER FLUOROSCOPIC GUIDANCE AND FOLLOWING PATIENT FEEDBACK UNTIL THE TARGET AREA WAS TOUCHED. THE POSITION OF THE NEEDLE WAS VERIFIED WITH AP AND LATERAL VIEWS. AFTER PROPER POSITION OF THE NEEDLE WAS ACHIEVED, ISOVUE M DYE 30%, 0.25 ML, WAS INJECTED SHOWING SPREAD OF THE DYE. THEN, A SOLUTION OF 20 MG OF KENALOG WAS INJECTED IN RIGHT JOINT WITH 3 ML OF BUPIVACAINE 0.125%. THERE WAS NO EVIDENCE OF BLOOD, PARESTHESIA OR CEREBROSPINAL FLUID DURING THE PROCEDURE. THE PATIENT WAS SENT TO THE RECOVERY ROOM. THE PATIENT WAS MOVING THE EXTREMITIES AND DOING WELL. THERE WAS NO COMPLICATION DURING THE PROCEDURE. FLUOROSCOPY TIME WAS 9 SECONDS POST PROCEDURE NOTE THE PATIENT WILL BE SEEN IN A FOLLOW UP IN THE NEXT FEW WEEKS. INSTRUCTIONS WERE GIVEN, QUESTIONS WERE ANSWERED, AND THE PATIENT EXPRESSED UNDERSTANDING AND AGREED WITH THE PLAN. I, YENI SANTACRUZ, DOCUMENTED THE ABOVE INFORMATION ACTING A SCRIBE FOR DR. LARIOS. I HAVE REVIEWED THE ABOVE DOCUMENT, WRITTEN BY YENI MARTINEZ AND I VERIFY THAT IT IS [facility] FLUORO GUIDANCE (PAIN)[id number] PROCEDURE CODES 87202 INJECT SACROILIAC JOINT 6045F RADXPS IN END [id number] PXD DISPOSITION & COMMUNICATION FOLLOW UP 3 WEEKS ELECTRONICALLY SIGNED BY KENDAL LARIOS MD ON 10/08/2016 AT 10:25 PM EDT DISCLAIMER : THIS IS A VISIT SUMMARY EXTRACTED FROM THE [employer] CHART. IT IS NOT A COPY OF THE [employer] PROGRESS NOTE. ANUJA
== END ==
LOC: M PAIN 09:00
PROVIDERS: ATTEND Anesthesiology
DX: G89.29 Other chronic pain (principal); M46.1 Sacroiliitis, not elsewhere classified; M54.5 Low back pain; Z91.018 Allergy to other foods
CPT/HCPCS: G0260; J3301; Q9967

== ENCOUNTER → 2016-10-19 | Outpatient (CLI) | payer OTHER ==
--- NOTE | 2016-11-07 01:20 | ECWPNPC ---
PATIENT NAME: YANDY SALDIVAR : 1970 GENDER: MALE VISIT DATE: 10/19/2016 DISCHARGE DATE: 10/19/16 1605 VISIT LOCKED DATE TIME: PHYSICIAN: JAGDISH DOYLE RESOURCE: JAGDISH DOYLE REASON FOR APPOINTMENT 1. POST L SIJ HISTORY OF PRESENT ILLNESS HISTORY OF PRESENT ILLNESS: HERE FOR POST PROCEDURE F/U.HAD LEFT SIJ ON SEPTEMBER 28.REPORTS >50% IMPROVEMENT IN PAIN POST PROCEDURE FOR 10 DAYS.STATES TODAY PAIN IS NOT SHARP BEFORE SHOT.RATING PAIN VAS 8/10.DISCUSSED TREATMENT OPTIONS.PAIN IS LOCATED IN LEFT LOW BACK WITH RADIATION INTO LEFT THIGH. PAIN THE PATIENT DESCRIBES THE PAIN... FALL RISK SCREENING: SCREENING :NO FALLS IN THE PAST YEAR CURRENT MEDICATIONS TAKING IBUPROFEN 200 MG TABLET 1 TABLET WITH FOOD OR MILK NEEDED ORALLY EVERY 6 HRS, NOTES: NONE RECENT TAKING CELEBREX 50 MG CAPSULE 1 CAPSULE WITH FOOD ORALLY TWICE A DAY MEDICATION LIST REVIEWED AND RECONCILED WITH THE PATIENT PAST MEDICAL HISTORY LOW BACK PAIN RIGHT TENNIS ELBOW LEFT THUMB DISLOCATION DEPRESSION CATARACTS ALLERGIES APPLES: ITCHING IN THROAT AND IRRITATION: ALLERGY ALMONDS: THROAT AND LIPS ITCHING AND IRRITATION: ALLERGY SURGICAL HISTORY LEFT FIBULA ORIF HOSPITALIZATION/MAJOR DIAGNOSTIC PROCEDURE SEE ABOVE SURGERY REVIEW OF SYSTEMS REVIEWED BY: PROVIDER: JAGDISH DOYLE THREAD SEPARATOR . CONSTITUTIONAL: ANY CHANGE IN YOUR MEDICAL CONDITION? NO . CHILLS NO . FEVER NO . INFECTION: DO YOU HAVE NEW INFECTIONS? NO . DO YOU HAVE HISTORY OF MRSA? NO . MUSCULOSKELETAL: ANY NEW PATTERNS OF PAIN OR NUMBNESS? YES, PT STATES HE HAD LEFT SIJ ON 09/28/16, PAIN PRE PROCEDURE WAS 8/10. POST PROCEDURE 2/10 SLOWLY CREEPING TO 8/10 TODAY . GASTROENTEROLOGY: ANY NEW CHANGE IN BOWEL CONTROL? NO . GENITOURINARY: ANY NEW CHANGE IN BLADDER CONTROL? NO . IS THERE A CHANCE YOU COULD BE ? NO . HEMATOLOGY/LYMPH: DO YOU TAKE ANY BLOOD THINNERS? (FOR EXAMPLE- COUMADIN, PLAVIX, AGGRENOX, PLATEL, PRADAXA, OR XARELTO) NO . WHEN WAS YOUR LAST DOSE? DATE: TIME: . NEUROLOGY: HAVE YOU FALLEN IN THE PAST 6 MONTHS? YES, PT STATES HE FALLS OFTEN DURING TRAINING WITH [employer]. . ANY NEW EXTREMITY NUMBNESS OR WEAKNESS? NO . CARDIOLOGY: DO YOU HAVE A PACEMAKER OR DEFIBRILLATOR? NO . RESPIRATORY: HAVE YOU BEEN SICK IN THE PAST WEEK? NO . FEVER NO . FLU LIKE SYMPTOMS? NO . COUGH NO . INTEGUMENTARY: DO YOU HAVE ANY RASHES OR OPEN SORES? NO . ALLERGIC/IMMUNO: ARE YOU ALLERGIC TO SHELLFISH OR IV DYE? NO . ANY NEW ALLERGIES? NO . PSYCHIATRIC: DO YOU HAVE THOUGHTS OF HURTING YOURSELF OR SOMEONE ELSE? NO . ARE YOU ABUSED, NEGLECTED, OR IN AN UNSAFE ENVIRONMENT? NO . ENDOCRINOLOGY: ARE YOU DIABETIC? NO . OTHER: DO YOU NEED ANY PRESCRIPTIONS? NO . IF YES, PLEASE LIST: ____ . ANY NEW PROBLEMS WITH YOUR MEDICATIONS? NO . WHEN DID YOU LAST EAT? ____ . WHEN DID YOU LAST DRINK? ____ . WHAT DID YOU LAST DRINK? ____ . NAME OF PERSON DRIVING YOU HOME? ____ . DO YOU HAVE ANY OTHER QUESTIONS OR CONCERNS NO . VITAL SIGNS WT 175 LBS, HT 65 IN, BMI 29.12 INDEX, BP 125/88 MM HG, HR 86 /MIN, RR 16 /MIN, TEMP 97.2 F, OXYGEN SAT % 96%, SAFE IN ENV? (Y/N) Y, NA INITIALS TR 1516, REVIEWED BY: EM. EXAMINATION GENERAL EXAMINATION: GENERAL APPEARANCE:COMFORTABLE. PSYCHAFFECT FLAT. LUNGS:LUNG JORDAN ARE CLEAR TO AUSCULTATION BILATERALLY. GOOD MOVEMENT OF AIR. HEART:S1, S2 IN A REGULAR RATE AND RHYTHM. NO SIGNIFICANT MURMURS, RUBS OR GALLOPS NOTED. BACK:POINT TENDERNESS OVER LEFT LUMBAR FACET L4/5 WITH FACET LOADING.SPECIFIC TRIGGER POINTS ELICITED LEFT LUMBAR PARASPINAL. 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 PROCEDURE CODES FA211 ESTABILISHED PATIENT [facility] FACILITY CHARGE DISPOSITION & COMMUNICATION FOLLOW UP POST PROCEDURE (REASON: LEFT L4/5 LUMBAR FACET THERAPEUTIC BLOCK) ELECTRONICALLY SIGNED BY SALLY LUNA ON 11/06/2016 AT 08:00 PM EDT DISCLAIMER : THIS IS A VISIT SUMMARY EXTRACTED FROM THE [employer] CHART. IT IS NOT A COPY OF THE [employer] PROGRESS NOTE. ANUJA
== END ==
LOC: M PAIN 15:00
PROVIDERS: ATTEND Nurse Practitioner Family
DX: G89.29 Other chronic pain (principal); M53.3 Sacrococcygeal disorders, not elsewhere classified; M43.06 Spondylolysis, lumbar region; F32.9 Major depressive disorder, single episode, unspecified; Z91.018 Allergy to other foods; Z79.899 Other long term (current) drug therapy

== ENCOUNTER 2017-01-10 16:05 | Emergency (ER) | payer OTHER ==
[~2017-01-10] VITALS: Ht 162.6 cm; Wt 82.3 kg
[2017-01-10 19:11] VITALS: BP 140/88
== END 2017-01-10 19:11 | disposition home or self-care (01) ==
LOC: M ED 16:05
DX: F32.9 Major depressive disorder, single episode, unspecified (principal)

== ENCOUNTER 2017-05-21 07:28 | Day surgery (SDC) | payer OTHER ==
[2017-05-21] MEDS: LR 1,000 ML IV (08:00)
[2017-05-21] MEDS ORDERED: LIDOCAINE 2% INJ 100 MG/5 ML SDV (FOR ANES.) As Ordered (08:21)
[2017-05-21] MEDS ORDERED: PROPOFOL 200 MG/20 ML VIAL As Ordered (08:21)
[2017-05-21] MEDS ORDERED: fentaNYL 100 MCG/2 ML INJECTION (J3010) As Ordered (08:21)
[2017-05-21] MEDS ORDERED: ROCURONIUM BROMIDE 50 MG/5 ML VIAL As Ordered (08:21)
[2017-05-21] MEDS ORDERED: MIDAZOLAM INJ 2 MG/2 ML VIAL (J2250) As Ordered (08:22)
[2017-05-21] MEDS ORDERED: dexameTHASONE 4 MG/ML 1ML VIAL (J1100) As Ordered ×2 (09:32)
[2017-05-21] MEDS ORDERED: ONDANSETRON 4MG/2ML VIAL (J2405) As Ordered (09:33)
[2017-05-21] MEDS ORDERED: NEOSTIGMINE 10 MG/10 ML VIAL (J2710) As Ordered (09:36)
[2017-05-21] MEDS ORDERED: GLYCOPYRROLATE INJ 0.2 MG/ML 2 ML VIAL As Ordered (09:37)
[2017-05-21] MEDS: EPINEPHrine INJ 1 MG/ML 1ML AMP As Ordered (09:41)
[2017-05-21] MEDS: METHYLENE BLUE 0.5% (5MG/ML) 10 ML AMP (PROVAYBLUE)(Q9968 PER 1MG) As Ordered (09:41)
[2017-05-21] MEDS ORDERED: fentaNYL 100 MCG/2 ML INJECTION (J3010) IV (10:30)
[2017-05-21] MEDS ORDERED: LR 1,000 ML IV (10:30)
[2017-05-21] MEDS ORDERED: MORPHINE 10 MG/ML 1ML VIAL (J2270) IV (10:30)
[2017-05-21] MEDS: ONDANSETRON 4MG/2ML VIAL (J2405) IV (10:38)
== END 2017-05-21 11:55 | disposition home or self-care (01) ==
LOC: M SDC 07:28
DX: J38.7 Other diseases of larynx (principal); D18.1 Lymphangioma, any site; K21.9 Gastro-esophageal reflux disease without esophagitis; F41.9 Anxiety disorder, unspecified; F32.9 Major depressive disorder, single episode, unspecified; Z79.899 Other long term (current) drug therapy
CPT/HCPCS: 31535

== ENCOUNTER 2018-02-26 09:50 | Emergency (ER) | payer OTHER ==
[~2018-02-26] VITALS: Ht 162.6 cm; Wt 85.5 kg
[~2018-02-26 09:50] MED LIST changes: +AMBI10TA PO; -BUPIVACAINE HCL 0.25% 30 ML VIAL As Ordered ONE; +FISH1000 PO; -ISOVUE-M 300 61% 15ML VIAL (Q9967) As Ordered ONE; +LEXA1TAB PO; -LIDOCAINE 1% SDV INJ 30 ML VIAL As Ordered ONE; +NAPR1TAB23 PO; +OMEP40CA2 PO; +SILD50TA2 PO; +TIZA4CAP PO; -TRIAMCINOLONE ACETONIDE SUSP 40 MG/ML VIAL (J3301) As Ordered ONE; +VITA100066 PO
[2018-02-26] MEDS ORDERED: ADACEL/BOOSTRIX VACCINE (DIPHTH/PERTUSS/ACELL/TETANUS)0.5ML SYR (90715) IM ONE (10:15)
[2018-02-26] MEDS ORDERED: LIDOCAINE 1% MDV 20ML VIAL As Ordered ONE (10:50)
--- NOTE | 2018-02-26 10:54 | REP ---
Right tib-fib series: Four views. History: Laceration. Question foreign body. Findings: Four views of the right tibia and fibula demonstrate Achilles calcaneal spurring and mild tibiotalar ankle spurring. There is also mild articular spurring of the patella on the lateral film. No opaque foreign body is seen. No fractures noted. Impression: No evidence of fracture or opaque foreign body. Electronically Signed by Sachin Pastrana MD 02/26/2018 10:45 A
[2018-02-26] MEDS ORDERED: LIDOCAINE 1% SDV INJ 30 ML VIAL SC SCH (11:00)
[2018-02-26] MEDS ORDERED: LIDOCAINE 1% MDV 20ML VIAL IM ONE (11:00)
[2018-02-26] MEDS ORDERED: CEPHALEXIN 500 MG CAP PO ONE (12:00)
[2018-02-26] MEDS ORDERED: KEFL500C17 PO (12:02)
[2018-02-26 12:10] VITALS: BP 138/91
== END 2018-02-26 12:15 | disposition home or self-care (01) ==
LOC: M ED 09:50
DX: S81.811A Laceration without foreign body, right lower leg, initial encounter (principal); W19.XXXA Unspecified fall, initial encounter; Y92.099 Unspecified place in other non-institutional residence as the place of occurrence of the external cause; Y93.9 Activity, unspecified; Y99.9 Unspecified external cause status; Z79.899 Other long term (current) drug therapy; Z91.018 Allergy to other foods